=== PATIENT | male | born 1965 | race Caucasian/White ===

== ENCOUNTER 2018-11-12 22:37 | Emergency (ER) | payer OTHER ==
[~2018-11-12] VITALS: Ht 175.3 cm; Wt 86.4 kg
[2018-11-12 22:43] VITALS: Ht 175.3 cm; Wt 86.4 kg
[2018-11-12] MEDS ORDERED: BAYER CHEWABLE81 MG PO (22:44)
[2018-11-12] MEDS ORDERED: PLAVIX75 MG PO (22:45)
[2018-11-12] MEDS ORDERED: TOPROL XL25 MG (22:46)
[2018-11-12 23:06] LABS: APPEARANCE CLEAR (CLEAR); BILIRUBIN NEGATIVE (NEGATIVE); COLOR YELLOW (YELLOW); GLUCOSE NEGATIVE (NEGATIVE); KETONE NEGATIVE (NEGATIVE); NITRITE NEGATIVE (NEGATIVE); PROTEIN NEGATIVE (NEGATIVE); SPECIFIC GRAVITY 1.015 (1.005-1.020); UROBILINOGEN NORMAL (NORMAL)
[2018-11-12 23:12] LABS: UDS - AMPHET POSITIVE QUAL (NEGATIVE); UDS - BARB NEGATIVE QUAL (NEGATIVE); UDS - BENZO NEGATIVE QUAL (NEGATIVE); UDS - COCAINE POSITIVE QUAL (NEGATIVE); UDS - OPIATE NEGATIVE QUAL (NEGATIVE); UDS - PCP NEGATIVE QUAL (NEGATIVE); UDS - THC POSITIVE QUAL (NEGATIVE)
[2018-11-12 23:13] LABS: BASOPHILS 0.1 % (0-2); HEMATOCRIT 42.4 % (42.0-54.0); HEMOGLOBIN 14.2 g/dL (13.5-17.5); IMMATURE GRANULOCYTES 0.3 % (0-5); LYMPHOCYTES 11.8 % (15-50); MCH 30.7 pg (26.0-34.0); MCHC 33.5 g/dL (31.0-37.0); MCV 91.8 fL (80.0-100.0); MEAN PLATELET VOLUME 10.7 fL (7.4-10.4); MONOCYTES 4.9 % (2-11); NEUTROPHILS 81.9 % (40-80); PLATELET COUNT 234 10x3/uL (130-400); RBC 4.62 10x6/uL (4.20-6.10); RDW 13.4 % (11.5-14.5); WBC 7.8 10x3/uL (4.8-10.8)
[2018-11-12 23:31] LABS: ALBUMIN 3.8 g/dL (3.4-5.0); ALKALINE PHOSPHATASE 65 U/L (46-116); ALT (SGPT) 15 U/L (10-68); BILIRUBIN - TOTAL 0.62 mg/dL (0.2-1.3); CALC OSMOLALITY 278 mosm/kg (275-300); CALCIUM 8.6 mg/dL (8.5-10.1); CARBON DIOXIDE 24.3 mmol/L (21.0-32.0); CHLORIDE - SERUM 104 mmol/L (98-107); GLUCOSE 123 mg/dL (74-106); POTASSIUM - SERUM 3.9 mmol/L (3.5-5.1); PROTEIN - SERUM 7.3 g/dL (6.4-8.2); SODIUM 139 mmol/L (136-145); UREA NITROGEN 12 mg/dL (7-18); eGFR NON AFRICAN AMERICAN 83 mL/min (90-120)
[2018-11-12 23:32] LABS: MAGNESIUM - SERUM 1.8 mg/dL (1.8-2.4)
--- NOTE | 2018-11-12 23:57 | NUR ---
PATIENT IN ER-20. THOUGHTS OF H/I AND S/I. PATIENT IS POSITIVE FOR METH, COCAINE AND THC. PATIENT WANTS TO HANG HIMSELF, THEREFORE HE SCORED A 3 AND REQUIRES A SITTER. SUICIDE PREVENTION RESOURCES GIVEN TO PATIENT, SUICIDE ENVIORNMENT CHECK LIST INTIATED AND A PATIENT OBSERVATION BEHAVIORIAL SHEET INTIATED. PATIENT IS IN BLUE PAPER SCRUBS, NO CORDS IN ROOM, NO PLASTIC BAGS IN ROOM. PATIENT IS CALM AT THIS TIME.
[2018-11-13] MEDS ORDERED: SEROQUEL25 MG (01:46)
[2018-11-13 08:38] VITALS: BP 116/72
== END 2018-11-13 08:40 ==
LOC: D.ER 22:37
PROVIDERS: Emergency Medicine
DX: R45.851 Suicidal ideations (principal); R45.850 Homicidal ideations